=== PATIENT | male | born 1975 | race Caucasian/White ===

== ENCOUNTER 2021-06-19 07:17 | Emergency (ER) | payer OTHER ==
[2021-06-19 07:38] VITALS: BP 160/108; PULSE 104; TEMP 98.8; BMI 29.2
== END 2021-06-19 07:52 | disposition home or self-care (01) ==
LOC: FER 07:17
DX: B34.9 Viral infection, unspecified (principal); G71.00 Muscular dystrophy, unspecified
CPT/HCPCS: 87804; 87807; 99283-25; C9803; U0003; U0005

== ENCOUNTER 2022-11-23 09:43 | Day surgery (SDC) | payer OTHER ==
[2022-11-21 16:36] VITALS: BMI 33.0
[2022-11-23] MEDS ORDERED: BUPIVACAINE HCL/PF 2.5 MG/ML - 30 ML VIAL IJ ONE ×2 (12:24→13:34)
[2022-11-23] MEDS ORDERED: MIDAZOLAM HCL 2 MG/2 ML SINGLE DOSE VIAL ONE (12:37)
[2022-11-23] MEDS ORDERED: BUPIVACAINE HCL/PF 0.5% (5MG/ML) 10 ML VIAL ONE (12:37)
[2022-11-23] MEDS ORDERED: BUPIVACAINE HCL/PF 0.25% (2.5MG/ML) 10 ML VIAL IJ ONE (13:40)
[2022-11-23 16:23] VITALS: BP 139/77; PULSE 87; RESP 19; TEMP 97.7
== END 2022-11-23 16:30 | disposition home or self-care (01) ==
LOC: FASU 09:43
PROVIDERS: ATTEND Orthopaedic Surgery
PROC: 0SBD4ZZ Excision of Left Knee Joint, Percutaneous Endoscopic Approach (ICD-10-PCS; 2022-11-23)
PROC: 0SBD4ZZ Excision of Left Knee Joint, Percutaneous Endoscopic Approach (ICD-10-PCS; principal; 2022-11-23 13:30)
DX: S83.282A Other tear of lateral meniscus, current injury, left knee, initial encounter (principal); S83.8X2A Sprain of other specified parts of left knee, initial encounter; M65.862 Other synovitis and tenosynovitis, left lower leg; X58.XXXA Exposure to other specified factors, initial encounter; Y93.9 Activity, unspecified; Y92.9 Unspecified place or not applicable
CPT/HCPCS: 94760

== ENCOUNTER 2024-02-24 19:05 | Emergency (ER) | payer OTHER ==
[2024-02-24 19:31] VITALS: BP 139/95; PULSE 97; RESP 20; TEMP 97.5; BMI 31.1
[2024-02-24] MEDS ORDERED: DIPHTH,PERTUSS(ACELL),TET 0.5 ML DISP.SYRIN IM ONE (19:58)
[2024-02-24] MEDS: DIPHTH,PERTUSS(ACELL),TET 0.5 ML DISP.SYRIN IM ONE (20:02)
== END 2024-02-24 20:08 | disposition home or self-care (01) ==
LOC: FER 19:05
PROC: 0XQNXZZ Repair Right Index Finger, External Approach (ICD-10-PCS; principal; 2024-02-24)
PROC: 3E0234Z Introduction of Serum, Toxoid and Vaccine into Muscle, Percutaneous Approach (ICD-10-PCS; 2024-02-24)
DX: S61.210A Laceration without foreign body of right index finger without damage to nail, initial encounter (principal); W27.5XXA Contact with paper-cutter, initial encounter; Z23 Encounter for immunization
CPT/HCPCS: 90715; 99282-25

== ENCOUNTER 2024-04-15 15:02 | Emergency (ER) | payer OTHER ==
[2024-04-15 16:36] VITALS: BP 116/82; PULSE 98; RESP 20; TEMP 98.2; BMI 29.5
[2024-04-15 17:49] LABS: HEMATOCRIT 40.3 % (35.4-49); HEMOGLOBIN 12.9 G/dL (11.7-16.9); MCH 27.3 pg (25.7-33.7); MEAN CELL VOLUME 85.4 fl (80-96); MEAN PLT VOLUME 9.1 fl (7.5-11.1); PLATELET COUNT 216.4 10^3/uL (134-434); RBC 4.72 10^6/uL (4.00-5.60); RDW 15.6 % (11.9-15.9); WHITE BLOOD COUNT 8.7 10^3/uL (4.0-10.8)
[2024-04-15 18:10] LABS: ALBUMIN 4.1 g/dl (3.4-5.0); BILIRUBIN,TOTAL 0.4 mg/dl (0.2-1); CALCIUM 9.9 mg/dl (8.5-10.1); CREATININE 1.1 mg/dl (0.6-1.3); PLATELET ESTIMATE ADEQUATE; POTASSIUM 3.9 mmol/L (3.5-5.1); TOT PROT 6.9 g/dl (6.4-8.2)
== END 2024-04-15 18:57 | disposition home or self-care (01) ==
LOC: FER 15:02
DX: M54.2 Cervicalgia (principal); M54.50 Low back pain, unspecified; R29.898 Other symptoms and signs involving the musculoskeletal system; F41.9 Anxiety disorder, unspecified; R42 Dizziness and giddiness; Z20.822 Contact with and (suspected) exposure to COVID-19
CPT/HCPCS: 0241U-QW; 36415; 70450-TC; 72070-TC-FY; 72100-TC-FY; 72125-TC; 80053; 85027; 99284-25